=== PATIENT | female | born 1975 | race Caucasian/White ===

== ENCOUNTER → 2017-03-08 08:10 | Outpatient (CLI) | payer BC ==
--- NOTE | ~2017-03-08 | EMG ---
PATIENT:BRENDA TOLEDO DATE OF SERVICE: 03/08/17 MEDICAL RECORD: [id number] DATE OF : [birth year] LOCATION: [facility] ADMISSION DATE: REFERRING PHYSICIAN: SNEHA HERNANDEZ MD INTERPRETING PHYSICIAN: GORDY JACOBO MD DATE OF SERVICE: 03/08/2017 REFERRED BY: Dr. Hernandez as an outpatient. DATE OF : 1975. DATE OF EXAMINATION: 03/08/2017. ELECTROMYOGRAPHIC DATA: Electromyographic examination is limited to both upper extremities. In the right upper extremity, right median motor stimulation elicits a compound motor action potential with a distal latency of 4.0 milliseconds, peak amplitude of 7 millivolts, and calculated conduction velocity of 44 meters per second. Right ulnar motor stimulation elicits a compound motor action potential with a distal latency of 2.8 milliseconds, peak amplitude of 11 millivolts and calculated conduction velocity of 61 meters per second. Right ulnar motor stimulation across the elbow fails to elicit evidence of conduction block at this level. Antidromic right median sensory stimulation elicits a response with a distal latency of 4.2 milliseconds, amplitude of 12 microvolts and calculated conduction velocity of 48 meters per second. Antidromic right ulnar sensory stimulation elicits a response with a distal latency of 3.7 milliseconds, amplitude of 15 microvolts and calculated conduction velocity of 58 meters per second. The right median F wave has a latency of 28 milliseconds. In the left upper extremity, left median motor stimulation elicits a compound motor action potential with a distal latency of 3.4 milliseconds, peak amplitude of 14 millivolts, and calculated conduction velocity of 53 meters per second. Left ulnar motor stimulation elicits a compound motor action potential with a distal latency of 2.6 milliseconds, peak amplitude of 10 millivolts and calculated conduction velocity of 62 meters per second. Left ulnar motor stimulation across the elbow fails to elicit evidence of conduction block at this level. Antidromic left median sensory stimulation elicits a response with a distal latency of 3.8 milliseconds, amplitude of 20 microvolts and calculated conduction velocity of 59 meters per second. Antidromic left ulnar sensory stimulation elicits a response with a distal latency of 3.2 milliseconds, amplitude of 19 microvolts and calculated conduction velocity of 53 meters per second. The left median F wave has a latency of 28 milliseconds. Needle electrode examination is limited to both upper extremities as well. Muscles interrogated include the abductor pollicis brevis, first dorsal interosseous, abductor digiti minimi, pronator teres, biceps brachii, triceps, and deltoid. There is no abnormality of insertional activity and no abnormal spontaneous activity is seen in all muscles interrogated. Motor unit potential morphology and the pattern of motor unit potential firing and recruitment is normal in all muscles sampled. 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 There is no electrical evidence of a superimposed cervical radiculopathy or other lesion of the lower motor neuron in the upper extremities at this time. There is no evidence for active denervation. TRANSINT:[id number] Voice Confirmation ID: [id number] DOCUMENT ID: [id number] GORDY JACOBO MD CC: [id number] DICTATION DATE: 03/08/17 0959 FASHION DESIGNER: 03/08/17 1040 REG [facility] [address] [id number]
== END | disposition home or self-care (01) ==
LOC: D.CN 08:10
DX: G56.03 Carpal tunnel syndrome, bilateral upper limbs (principal)